=== PATIENT | male | born 1985 | race Two or more races ===

== ENCOUNTER 2016-12-26 11:21 | Outpatient (CLI) | payer OTHER ==
--- NOTE | 2016-12-26 13:18 | Diagnostic Imaging Report ---
Indication: Dyspnea Comparison: None 2 views of the chest obtained. Findings: Cardiomediastinal silhouette and pulmonary vascularity are within normal limits for age. The diaphragmatic contour is smooth and costophrenic angles are sharp. No pleural effusions are identified. The bones are unremarkable. Impression: No acute disease
== END 2016-12-26 13:21 | disposition home or self-care (01) ==
LOC: RAD 11:21
DX: R07.9 Chest pain, unspecified (principal)
CPT/HCPCS: 71020